=== PATIENT | female | born 1950 | race African-American/Black ===

== ENCOUNTER 2023-01-15 15:56 | Emergency (ER) | payer MEDICARE, OTHER ==
[~2023-01-15] VITALS: Ht 157.5 cm; Wt 72.6 kg
--- NOTE | 2023-01-15 18:31 | NUR ---
PT SEEN AND EVALUATED BY DR MENDENHALL; WAS AKED SEVERAL TIMES IF SHE WANTED TO BE TREATED OR NOT; BUT CALMLY REFUSED TREATMENT, DOES NOT WANT TO GO BACK TO [facility] AND REQUESTED TO BE DISCHARGED TO DAUGHTER; SPOKE WITH PT'S DAUGHTER BY PHONE. RN CERAMIC TILE MECHANIC REQUESTED FOR A VOUCHER TO DESIGNATED ADDRESS . [facility] NOTIFIED ABOUT PATIENT'S DECISION TO NOT GO BACK TO FACILITY.
[2023-01-15 18:35] VITALS: BP 140/80
== END 2023-01-15 18:36 | disposition home or self-care (01) ==
LOC: ER 15:56
DX: Z00.00 Encounter for general adult medical examination without abnormal findings (principal); E78.5 Hyperlipidemia, unspecified; Z86.2 Personal history of diseases of the blood and blood-forming organs and certain disorders involving the immune mechanism
CPT/HCPCS: A4663